=== PATIENT | male | born 1965 | race Two or more races ===

== ENCOUNTER 2018-06-09 21:15 | Emergency (ER) | payer OTHER ==
[~2018-06-09] VITALS: Ht 180.3 cm; Wt 115.7 kg
[2018-06-09 21:43] VITALS: BP 135/90
[2018-06-09 22:10] LABS: Basophils # (auto) 0.1 uL; Basophils % (auto) 0.7 % (0.0-2.0); Eosinophils # (auto) 0.2 uL; Eosinophils % (auto) 2.2 % (0.0-7.0); Hematocrit 45.9 % (41.0-53.0); Hemoglobin 15.8 g/dL (13.5-17.5); Lymphocytes # (auto) 2.5 uL; Lymphocytes % (auto) 28.6 % (10.0-50.0); Mean Corpuscular Hemoglobin 30.9 pg (28.0-32.0); Mean Corpuscular Hgb Conc. 34.5 g/dL (32.0-36.0); Mean Corpuscular Volume 89.7 fL (80.0-100.0); Monocytes # (auto) 0.4 uL; Monocytes % (auto) 5.1 % (0.0-12.0); Neutrophils # (auto) 5.6 uL; Neutrophils % (auto) 63.4 % (37.0-80.0); Nucleated Red Blood Cells % 0.2 %; Platelet Count (auto) 212 10^3/uL (140-450); Red Blood Cells 5.12 10^6/uL (4.5-5.90); Red Cell Distribution Width 13.5 % (11.8-14.3); White Blood Cell 8.8 10^3/uL (4.4-10.8)
[2018-06-09 22:29] LABS: Chloride 106 mmol/L (98-107); Potassium 3.4 mmol/L (3.5-5.1); Sodium 142 mmol/L (136-145)
[2018-06-09 22:40] LABS: Alanine Aminotransferase 33 U/L (16-61); Albumin 3.7 g/dL (3.4-5.0); Alkaline Phosphatase 124 U/L (45-117); Anion Gap 12 (5-15); Aspartate Aminotransferase 23 U/L (15-37); BUN/Creatinine Ratio 17.4; Bilirubin, Total 0.3 mg/dL (0.2-1.0); Blood Urea Nitrogen 20 mg/dL (7-18); Calcium 8.4 mg/dL (8.5-10.1); Carbon Dioxide 24 mmol/L (21-32); GFR African American 86 mL/min; GFR Non-African American 71 mL/min; Glucose 150 mg/dL (74-106); Magnesium 2.2 mg/dL (1.6-2.6); Total Protein 7.4 g/dL (6.4-8.2)
== END 2018-06-09 23:30 | disposition left against medical advice (07) ==
LOC: ER 21:15
DX: R07.89 Other chest pain (principal); R06.02 Shortness of breath; Z53.21 Procedure and treatment not carried out due to patient leaving prior to being seen by health care provider
CPT/HCPCS: 36415; 71045; 80053; 83735; 83880; 84484; 85025; 93005